=== PATIENT | female | born 1985 | race Caucasian/White ===

== ENCOUNTER 2017-04-15 09:14 | Day surgery (SDC) | payer MEDICAID, OTHER ==
[2017-04-15] MEDS: ALBUTEROL SULFATE 0.083% NEB 2.5 MG/3 ML AMPUL NEB ONE ×2 (08:15→09:30)
[2017-04-15] MEDS ORDERED: PROPOFOL INJ 200 MG/20 ML VIAL IV ONE ×2 (09:56→10:44)
[2017-04-15] MEDS ORDERED: MEPERIDINE HCL/PF INJ 25 MG/1 ML DISP.SYRIN IV PRN (10:41)
[2017-04-15] MEDS ORDERED: DIPHENHYDRAMINE HCL 50 MG/ML VIAL IV PRN (10:41)
[2017-04-15] MEDS ORDERED: MORPHINE SULFATE 10 MG/ML INJ IV PRN (10:41)
[2017-04-15] MEDS ORDERED: FENTANYL CITRATE INJ/PF 100 MCG/2 ML AMPUL IV PRN ×3 (10:41)
[2017-04-15] MEDS ORDERED: PROMETHAZINE HCL INJ 25 MG/1 ML VIAL IV PRN ×2 (10:41)
--- NOTE | 2017-04-15 10:59 | Operative Report ---
Operative Report DATE OF SURGERY: 04/15/17 Operative Report: The risks benefits and alternatives of the procedure explained to the patient in detail and informed consent is obtained.A GIF Olympus video scope was inserted into the patient's mouth and hypopharynx, the esophagus is identified intubated and insufflated, the scope was then advanced through the esophagus stomach and duodenum, retroflexion maneuver is done ,the esophagus stomach and first and second portions of the duodenum examined PREOPERATIVE DIAGNOSIS: Epigastric pain rule out peptic ulcer disease POSTOPERATIVE DIAGNOSIS: Gastritis status post biopsy rule out Helicobacter pylori OPERATION: EGD with biopsy SURGEON: INDERJIT BRAGA ANESTHESIA: LMAC TISSUE REMOVED OR ALTERED: Gastric mucosal specimen obtained to rule out Helicobacter pylori COMPLICATIONS: None. ESTIMATED BLOOD LOSS: None. INTRAOPERATIVE FINDINGS: No esophageal ulcers noted. Gastritis. First and second portions of the duodenum normal. PROCEDURE: Patient tolerated the procedure well. No immediate postprocedure complications are noted. Patient discharged in good condition. Discharge date 04/15/2017. Discharge diet: Regular. Discharge activity: Regular. 2-3 week follow-up to discuss findings. Patient is instructed to call the office or proceed to the emergency room should there be any further problems or questions. We will wait on biopsies.
[2017-04-15 12:14] VITALS: BP 118/73
== END 2017-04-15 12:18 | disposition home or self-care (01) ==
LOC: OROUT 09:14
PROVIDERS: ATTEND Internal Medicine Gastroenterology
PROC: 0DB68ZX Excision of Stomach, Via Natural or Artificial Opening Endoscopic, Diagnostic (ICD-10-PCS; principal; 2017-04-15 09:45)
DX: K29.50 Unspecified chronic gastritis without bleeding (principal); F17.210 Nicotine dependence, cigarettes, uncomplicated; K21.9 Gastro-esophageal reflux disease without esophagitis; Z79.899 Other long term (current) drug therapy; Z88.2 Allergy status to sulfonamides; Z88.1 Allergy status to other antibiotic agents
CPT/HCPCS: 43239; 81025; 88342 ×2; 88305 ×2; J2704; 740

== ENCOUNTER → 2018-07-03 | Outpatient (CLI) | payer MEDICAID ==
--- NOTE | 2018-07-03 11:17 | RADIOLOGY REPORT (SQ) ---
EXAM DESCRIPTION: ANKLE RIGHT COMPLETE COMPLETED DATE/TIME: 07/03/2018 11:09 am REASON FOR STUDY: PAIN IN RIGHT ANKLE AND JOINTS OF RIGHT FOOT M25.571 PAIN IN RIGHT ANKLE AND JOIN TS OF RIGHT FOOT COMPARISON: None. NUMBER OF VIEWS: Three views. TECHNIQUE: AP, lateral, and oblique radiographic images acquired of the right ankle. LIMITATIONS: None. FINDINGS: MINERALIZATION: Normal. BONES: No acute fracture or dislocation. Orthopedic tracks in the distal tibia from prior hardware r emoval. No worrisome bone lesions. JOINTS: No effusions. SOFT TISSUES: No soft tissue swelling. No foreign body. OTHER: No other significant finding. IMPRESSION: 1. NEGATIVE STUDY OF THE RIGHT ANKLE. TECHNICAL DOCUMENTATION: JOB ID: [id number] [employer]- All Rights Reserved Reading location - IP/workstation name: [email or web address]
== END ==
LOC: OD 10:55
PROVIDERS: ATTEND Family Medicine
DX: M25.571 Pain in right ankle and joints of right foot (principal)

== ENCOUNTER 2018-08-30 09:16 | Day surgery (SDC) | payer MEDICAID ==
[~2018-08-30 09:16] MED LIST: EPINEPHRINE INJ 1 MG/10 ML DISP.SYRIN ONE; FLUMAZENIL INJ 0.5 MG/5 ML VIAL ONE; GLUCAGON,HUMAN RECOMB 1 MG INJ ONE; NALOXONE HCL INJ/PF 0.4 MG/1 ML SDV ONE; ONDANSETRON HCL INJ/PF 4 MG/2 ML SDV ONE
[2018-08-30] MEDS: MIDAZOLAM 2 MG/2 ML INJ ONE ×3 (09:45→09:53)
[2018-08-30] MEDS: FENTANYL CITRATE INJ/PF 100 MCG/2 ML AMPUL ONE ×2 (09:47→09:51)
--- NOTE | 2018-08-30 10:12 | Operative Report ---
Operative Report DATE OF SURGERY: 08/30/18 Operative Report: The risks benefits and alternatives of the procedure explained to the patient in detail and informed consent is obtained.A GIF Olympus video scope was inserted into the patient's mouth and hypopharynx, the esophagus is identified intubated and insufflated ,the scope was then advanced through the esophagus stomach and duodenum, retroflexion maneuver is done the esophagus stomach and first and second portions of the duodenum examined PREOPERATIVE DIAGNOSIS: Dysphagia POSTOPERATIVE DIAGNOSIS: Schatzki's ring status post breakage. Hiatal hernia. Gastritis status post biopsy OPERATION: EGD with biopsy SURGEON: INDERJIT BRAGA ANESTHESIA: Moderate Sedation - 6 mg of Versed, 150 mcg of fentanyl. Conscious sedation monitoring time 30 minutes. TISSUE REMOVED OR ALTERED: As noted above. COMPLICATIONS: None. ESTIMATED BLOOD LOSS: None. INTRAOPERATIVE FINDINGS: As noted above. PROCEDURE: Patient tolerated the procedure well. No immediate postprocedure complications are noted. Patient discharged in good condition. Discharge date 08/30/2018. Discharge diet: Regular. Discharge activity: Regular. 2-3-week follow-up to discuss findings. Patient is instructed to call the office or proceed to the emergency room should there be any further proximal questions. Wait on the pathology.
[2018-08-30 11:29] VITALS: BP 116/73
== END 2018-08-30 11:20 | disposition home or self-care (01) ==
LOC: END 09:16
PROVIDERS: ATTEND Internal Medicine Gastroenterology
DX: K22.2 Esophageal obstruction (principal); K44.9 Diaphragmatic hernia without obstruction or gangrene; K29.50 Unspecified chronic gastritis without bleeding; K21.0 Gastro-esophageal reflux disease with esophagitis; F17.210 Nicotine dependence, cigarettes, uncomplicated; Z88.1 Allergy status to other antibiotic agents; Z88.2 Allergy status to sulfonamides
CPT/HCPCS: 43239; 88305 ×2; J2250; J3010; J0171; J1610; J2310; J2405; J3490

== ENCOUNTER 2018-11-14 08:23 | Emergency (ER) | payer MEDICAID ==
--- NOTE | 2018-11-14 09:28 | ER Document Report ---
ED Skin Rash/Insect Bite/Abscs - General Chief Complaint: Insect Bite Stated Complaint: POSSIBLE SPIDER BITE Time Seen by Provider: 11/14/18 09:04 Mode of Arrival: Ambulatory Information source: Patient Notes: 33-year-old female presented to ED for a red inflamed "insect bite "to her neck that has been progressively getting worse for the last 5 days. She states she is cleaned it with peroxide and placed a Band-Aid over it for the last 5 days. She states that she had a red bump on her neck and she squeezed it 3-4 days ago. She states she got some fluid out of it and that she has been squeezing it and cleaning it daily. She states that it has become more sore so she came to the emergency room because she thought it might be a spider bite and needed treatment. TRAVEL OUTSIDE OF THE [place] IN LAST 30 DAYS: No - HPI Patient complains to provider of: Tender/swollen area Onset: Other - 5 days Onset/Duration: Gradual Quality of pain: Achy, Pressure Severity: Severe Pain Level: 5 Skin Character: Other - Small scabbed over area to the neck that looks like a insect bite that is been squeezed and manipulated multiple times. Quality of rash: Painful Identify cause: Yes Exacerbated by: Denies Relieved by: Denies Similar symptoms previously: Yes Recently seen / treated by doctor: No - Related Data Allergies/Adverse Reactions: erythromycin base [Erythromycin Base] Allergy (Verified 11/14/18 08:25) SWELLING Sulfa (Sulfonamide Antibiotics) Allergy (Verified 11/14/18 08:25) SWELLING Past Medical History - General Information source: Patient - Social History Smoking Status: Unknown if Ever Smoked Frequency of alcohol use: None Drug Abuse: None Lives with: Family Family History: Reviewed & Not Pertinent Patient has suicidal ideation: No Patient has homicidal ideation: No - Past Medical History Cardiac Medical History: Reports: None Pulmonary Medical History: Reports: Hx Bronchitis - A CHILD EENT Medical History: Reports: None Neurological Medical History: Reports: None Endocrine Medical History: Reports: None Renal/ Medical History: Reports: None Malignancy Medical History: Reports: None GI Medical History: Reports: None Musculoskeletal Medical History: Reports Hx Arthritis Skin Medical History: Reports Hx Cellulitis - She states she has had a brown recluse bite that had to have surgery Psychiatric Medical History: Reports: None Traumatic Medical History: Reports: None Infectious Medical History: Reports: None Past Surgical History: Reports: Other - I&D and open area for brown recluse bite in the past - Immunizations Hx Diphtheria, Pertussis, Tetanus Vaccination: Yes Review of Systems - Review of Systems Constitutional: No symptoms reported EENT: No symptoms reported Cardiovascular: No symptoms reported Respiratory: No symptoms reported Gastrointestinal: No symptoms reported Genitourinary: No symptoms reported Female Genitourinary: No symptoms reported Musculoskeletal: No symptoms reported Skin: Lesions - Lesion to the neck that started as a red bump and she has been squeezing it and cleaning it with peroxide for the last 5 days Hematologic/Lymphatic: No symptoms reported Neurological/Psychological: No symptoms reported Physical Exam - Vital signs Vitals: Temp Pulse Resp BP Pulse Ox 98.5 F 103 H 16 116/71 97 11/14/18 08:29 11/14/18 08:29 11/14/18 08:29 11/14/18 08:29 11/14/18 08:29 Interpretation: Normal - General General appearance: Appears well, Alert - HEENT Head: Normocephalic, Atraumatic Eyes: Normal Pupils: PERRL Ears: Normal External canal: Normal Tympanic membrane: Normal Sinus: Normal Nasal: Normal Mouth/Lips: Normal Mucous membranes: Normal Pharynx: Normal Neck: Other - Lesion to the front of the neck the patient has been squeezing and cleaning with peroxide - Respiratory Respiratory status: No respiratory distress Chest status: Nontender Breath sounds: Normal Chest palpation: Normal - Cardiovascular Rhythm: Regular Heart sounds: Normal auscultation Murmur: No - Abdominal Inspection: Normal Distension: No distension Bowel sounds: Normal Tenderness: Nontender Organomegaly: No organomegaly - Back Back: Normal, Nontender - Extremities General upper extremity: Normal inspection, Nontender, Normal color, Normal ROM, Normal temperature General lower extremity: Normal inspection, Nontender, Normal color, Normal ROM, Normal temperature, Normal weight bearing. No: Kacey's sign - Neurological Neuro grossly intact: Yes Cognition: Normal Orientation: AAOx4 Point Clear Coma Scale Eye Opening: Spontaneous Alex Coma Scale Verbal: Oriented Alex Coma Scale Motor: Obeys Commands Point Clear Coma Scale Total: 15 Speech: Normal Motor strength normal: LUE, RUE, LLE, RLE Sensory: Normal - Psychological Associated symptoms: Normal affect, Normal mood - Skin Skin Temperature: Warm Skin Moisture: Dry Skin Color: Normal Course - Re-evaluation Re-evalutation: 11/14/18 23:16 Patient was given instructions for very superficial minimal abscess to the front of the neck. She was given instructions to clean with soap and water apply bacitracin and Band-Aid 2-3 times a day. She was started on Keflex and instructed not to squeeze or do anything except for "clean the area with warm soapy water and apply bacitracin. Patient was given bacitracin and small Band- Aids to apply to the area. The area is less than 1 cm across. - Vital Signs Vital signs: Temp Pulse Resp BP Pulse Ox 98 F 81 16 108/73 98 11/14/18 09:31 11/14/18 09:31 11/14/18 09:31 11/14/18 09:31 11/14/18 09:31 Discharge - Discharge Clinical Impression: Abscess of skin of neck Condition: Stable Disposition: HOME, SELF-CARE Additional Instructions: ABSCESS: You have an abscess (boil). This a pus-forming infection, usually due to staph. Some boils may be left to drain on their own. From the time the tender lump first appears, it may be three or four days before the abscess is ready to vanessa. Local heat and rest help at this stage of treatment. An antibiotic may prevent spread of the infection. Once the abscess is opened, packing may be placed into it. This is done so pus is not sealed inside by premature closure of the cavity. The packing will be removed at your follow-up visit or you may be advised to remove it yourself at home. Sometimes this packing must be replaced a few times during healing. The wound will heal with surprisingly little scar. Depending on the size and location of an abscess, healing can take one to four weeks. You may shower and wash the area around the incision site two or three times a day. Antibiotics may be prescribed, but are usually not necessary after an abscess has been drained. If you develop fever, chills, worsening pain, or increasing swelling in the area, call the doctor or return immediately. CEPHALEXIN: The antibiotic you've been prescribed is a member of the cephalosporin class. This type of antibiotic covers a wide variety of infections, including those of the skin, lungs, and urinary tract. It's useful for staph infections. This antibiotic is slightly similar to the penicillin family. In rare cases, a person who is allergic to penicillin will also be allergic to this medication. If you have had a severe allergic reaction to penicillin, and have not taken this antibiotic since that time, notify your doctor. Antibiotics which cover many germs ("broad spectrum" antibiotics) are more likely to cause diarrhea or "yeast" infections. Women prone to vaginal yeast problems may suffer an attack after taking this antibiotic. In infants, oral thrush (white spots "stuck" on the cheek) or yeast diaper rash may result. See your doctor if these problems occur. Call at once if you develop itching, hives, shortness of breath, or lightheadedness. SOAP CLEANSING: Gently wash the wound daily using a mild soap (like Ivory, Phisoderm, Neutrogena). Use warm water, rubbing gently until all debris, ooze, and crusting have been washed from the wound. Allow to dry briefly (about 10 minutes) after cleaning. Repeat this cleansing at least three times a day for the first two days and then once or twice a day. ANTIBIOTIC OINTMENT PROTECTION: Your wounds are such that dressing them is not practical or optional. After cleansing, you should apply a thin coating of antibiotic ointment (Bacitracin, not Neosporin) to the wounds at least three times daily. This lessens infection risk, and may decrease the amount of scarring. Use a q-tip or dull butter knife, not your finger, to apply this ointment. Any debris or ooze which builds up in the ointment should be gently rubbed off with a sterile gauze pad. Harder crusting may need to be gently scrubbed off with a clean wash cloth with soap and warm water, perhaps applying a warm, wet wash cloth to the wound for ten minutes first. Development of redness, severe itching, or blistering may mean allergy to the ointment. See the doctor. FOLLOW-UP CARE: If you have been referred to a physician for follow-up care, call the physicians office for an appointment as you were instructed or within the next two days. If you experience worsening or a significant change in your symptoms, notify the physician immediately or return to the Emergency Department at any time for re-evaluation. Prescriptions: Cephalexin Monohydrate [Keflex 500 mg Capsule] 500 mg PO Q6H 5 Days capsule Forms: Return to Work Referrals: CARINE ENAMORADO DO [Primary Care Provider] - Follow up as needed
[2018-11-14 09:32] VITALS: BP 108/73
== END 2018-11-14 09:31 | disposition home or self-care (01) ==
LOC: ER 08:23
DX: L02.11 Cutaneous abscess of neck (principal)
CPT/HCPCS: 99281

== ENCOUNTER 2019-01-10 08:40 | Emergency (ER) | payer MEDICAID ==
[2019-01-10] MEDS ORDERED: NORMAL SALINE 1000 ML 1,000 ML IV ONE (09:38)
--- NOTE | 2019-01-10 09:39 | ER Document Report ---
ED Medical Screen (RME) - General Chief Complaint: Abdominal Pain Stated Complaint: FEVER Time Seen by Provider: 01/10/19 09:32 Primary Care Provider: CARINE ENAMORADO DO [Primary Care Provider] - Follow up as needed Notes: 33-year-old female to the emergency department chief complaint of shortness of breath, nausea, vomiting. Cannot keep anything down. Intermittent fever and chills. Symptoms have been present for 2 days. Some mild pain in the left lower quadrant but thinks that she is about to start her period. I have greeted and performed a rapid initial assessment of this patient. A comprehensive ED assessment and evaluation of the patient, analysis of test results and completion of the medical decision making process will be conducted by additional ED providers. TRAVEL OUTSIDE OF THE [place] IN LAST 30 DAYS: No - Related Data Allergies/Adverse Reactions: erythromycin base [Erythromycin Base] Allergy (Verified 01/10/19 08:43) SWELLING Sulfa (Sulfonamide Antibiotics) Allergy (Verified 01/10/19 08:43) SWELLING Past Medical History - Past Medical History Cardiac Medical History: Denies: Hx Coronary Artery Disease, Hx Heart Attack, Hx Hypertension Pulmonary Medical History: Reports: Hx Bronchitis - A CHILD Denies: Hx Asthma, Hx COPD, Hx Pneumonia Neurological Medical History: Denies: Hx Cerebrovascular Accident, Hx Seizures Renal/ Medical History: Denies: Hx Peritoneal Dialysis GI Medical History: Reports: Hx Gastroesophageal Reflux Disease Musculoskeltal Medical History: Reports Hx Arthritis Skin Medical History: Reports Hx Cellulitis - She states she has had a brown recluse bite that had to have surgery Past Surgical History: Reports: Hx Section, Hx Orthopedic Surgery, Hx Tonsillectomy, Other - I&D and open area for brown recluse bite in the past. Denies: Hx Hysterectomy - Immunizations Hx Diphtheria, Pertussis, Tetanus Vaccination: Yes Review of Systems - Review of Systems Notes: Review of systems positive for the following: Shortness of breath, abdominal pain, nausea, vomiting, fever, chills Physical Exam - Vital signs Vitals: Temp Pulse Resp BP Pulse Ox 98.5 F 111 H 16 119/85 98 01/10/19 08:46 01/10/19 08:46 01/10/19 08:46 01/10/19 08:46 01/10/19 08:46 - Notes Notes: Physical exam consistent of following: Tachycardia, tachypnea, lungs are clear, abdomen is soft, nondistended, positive bowel sounds, mild distress from discomfort. Course - Vital Signs Vital signs: Temp Pulse Resp BP Pulse Ox 98.5 F 111 H 16 119/85 98 01/10/19 08:46 01/10/19 08:46 01/10/19 08:46 01/10/19 08:46 01/10/19 08:46 Doctor's Discharge - Discharge Referrals: CARINE ENAMORADO DO [Primary Care Provider] - Follow up as needed
--- NOTE | 2019-01-10 10:09 | RADIOLOGY REPORT (SQ) ---
EXAM DESCRIPTION: CHEST 2 VIEWS COMPLETED DATE/TIME: 01/10/2019 10:01 am REASON FOR STUDY: sob COMPARISON: None. EXAM PARAMETERS: NUMBER OF VIEWS: two views TECHNIQUE: Digital Frontal and Lateral radiographic views of the chest acquired. RADIATION DOSE: NA LIMITATIONS: none FINDINGS: LUNGS AND PLEURA: No opacities, masses or pneumothorax. No pleural effusion. MEDIASTINUM AND HILAR STRUCTURES: No masses or contour abnormalities. HEART AND VASCULAR STRUCTURES: Heart normal size. No evidence for failure. BONES: No acute findings. HARDWARE: None in the chest. OTHER: No other significant finding. IMPRESSION: 1. NO ACUTE RADIOGRAPHIC FINDING IN THE CHEST. TECHNICAL DOCUMENTATION: JOB ID: [id number] [employer]- All Rights Reserved Reading location - IP/workstation name: [email or web address]
[2019-01-10 10:11] LABS: HEMATOCRIT 45.4 % (36.0-47.0); HEMOGLOBIN 15.6 g/dL (12.0-15.5); MEAN CORPUSCULAR HEMOGLOBIN 30.4 pg (27.0-33.4); MEAN CORPUSCULAR HGB CONC 34.4 g/dL (32.0-36.0); MEAN CORPUSCULAR VOLUME 88 fl (80-97); PLATELET COUNT 326 10^3/uL (150-450); RED BLOOD COUNT 5.15 10^6/uL (3.72-5.28); RED CELL DISTRIBUTION WIDTH 13.8 % (11.5-14.0); WHITE BLOOD COUNT 8.8 10^3/uL (4.0-10.5)
[2019-01-10 10:25] LABS: ALANINE AMINOTRANSFERASE 44 U/L (9-52); ALBUMIN 5.2 g/dL (3.5-5.0); ALKALINE PHOSPHATASE 56 U/L (38-126); ANION GAP 18 (5-19); ASPARTATE AMINO TRANSFERASE 38 U/L (14-36); BILIRUBIN,DIRECT 0.3 mg/dL (0.0-0.4); BILIRUBIN,TOTAL 0.6 mg/dL (0.2-1.3); BLOOD UREA NITROGEN 25 mg/dL (7-20); CARBON DIOXIDE 24 mmol/L (22-30); CHLORIDE 104 mmol/L (98-107); GLUCOSE 177 mg/dL (75-110); LIPASE 29.5 U/L (23-300); POTASSIUM 4.2 mmol/L (3.6-5.0); SODIUM 146.4 mmol/L (137-145); TOTAL PROTEIN 8.3 g/dL (6.3-8.2)
[2019-01-10 10:28] LABS: A TYPE INFLUENZA AG NEGATIVE (NEGATIVE); B INFLUENZA AG NEGATIVE (NEGATIVE)
[2019-01-10 10:36] LABS: ABSOLUTE LYMPHOCYTES# (MANUAL) 0.7 10^3/uL (0.5-4.7); ABSOLUTE MONOCYTES # (MANUAL) 0.2 10^3/uL (0.1-1.4); ABSOLUTE NEUTROPHILS# (MANUAL) 7.9 10^3/uL (1.7-8.2); BASOPHILS % (MANUAL) 0 % (0-2); EOSINOPHILS % (MANUAL) 0 % (0-6); LYMPHOCYTES % (MANUAL) 7 % (13-45); MONOCYTES % (MANUAL) 2 % (3-13); SEGMENTED NEUTROPHILS % (MAN) 90 % (42-78); TOTAL CELLS COUNTED 100
[2019-01-10 10:37] LABS: PLATELET COMMENT ADEQUATE; RBC MORPHOLOGY COMMENT NORMO-CYTIC/CHROMIC
[2019-01-10 10:59] LABS: APPEARANCE,URINE SLIGHTLY-CLOUDY; BILIRUBIN,URINE NEGATIVE (NEGATIVE); COLOR,URINE YELLOW; GLUCOSE, URINE NEGATIVE (NEGATIVE); KETONES,URINE NEGATIVE (NEGATIVE); LEUKOCYTE ESTERASE,URINE NEGATIVE (NEGATIVE); NITRITE,URINE NEGATIVE (NEGATIVE); PROTEIN,URINE 100 mg/dL (NEGATIVE); URINE SPECIFIC GRAVITY 1.028; UROBILINOGEN,URINE NEGATIVE mg/dL (<2.0)
[2019-01-10] MEDS ORDERED: ONDANSETRON ODT 4 MG TAB (6 TAB/ER DISP) PO PRN (12:01)
--- NOTE | 2019-01-10 12:01 | ER Document Report ---
HPI - HPI Time Seen by Provider: 01/10/19 09:32 Pain Level: 1 Context: Patient is a 33-year-old female who presents to the emergency department with a chief complaint of vomiting, fever, chills, and body aches. Her symptoms started yesterday. She states that she has an aching pain all throughout her body. She denies any diarrhea. She has had some sick contacts, who have had the same symptoms. She denies any dysuria. She took some Motrin yesterday, but was unable to keep it down. She has past medical history of GERD with multiple ablations. - ROS Notes: REVIEW OF SYSTEMS: CONSTITUTIONAL : See HPI EENT: Denies eye, ear, throat, or mouth pain, discharge, or symptoms. Denies nasal or sinus congestion. CARDIOVASCULAR: Denies chest pain. RESPIRATORY: Denies shortness of breath, cough, congestion, difficulty br eathing, or wheezing. GASTROINTESTINAL: See HPI GENITOURINARY: Denies difficulty urinating, burning, blood in urine, urgency or frequency. MUSCULOSKELETAL: Denies neck and back pain. Denies joint pain or swelling. SKIN: Denies rash, itchiness, or lesions HEMATOLOGIC : Denies easy bruising or bleeding. LYMPHATIC: Denies swollen, painful, enlarged glands. NEUROLOGICAL: Denies no numbness or tingling denies weakness. Denies headache. Denies altered mental status. Denies alteration in speech. PSYCHIATRIC: Denies stress, anxiety, alteration in sleep patterns, or depression. All other systems reviewed and negative. - REPRODUCTIVE Reproductive: DENIES: : Past Medical History - Social History Smoking Status: Former Smoker Family History: Reviewed & Not Pertinent Patient has suicidal ideation: No Patient has homicidal ideation: No - Past Medical History Cardiac Medical History: Denies: Hx Coronary Artery Disease, Hx Heart Attack, Hx Hypertension Pulmonary Medical History: Reports: Hx Bronchitis - A CHILD Denies: Hx Asthma, Hx COPD, Hx Pneumonia Neurological Medical History: Denies: Hx Cerebrovascular Accident, Hx Seizures Renal/ Medical History: Denies: Hx Peritoneal Dialysis GI Medical History: Reports: Hx Gastroesophageal Reflux Disease Musculoskeletal Medical History: Reports Hx Arthritis Skin Medical History: Reports Hx Cellulitis - She states she has had a brown recluse bite that had to have surgery Past Surgical History: Reports: Hx Section, Hx Orthopedic Surgery, Hx Tonsillectomy, Other - I&D and open area for brown recluse bite in the past. Denies: Hx Hysterectomy - Immunizations Hx Diphtheria, Pertussis, Tetanus Vaccination: Yes Vertical Provider Document - CONSTITUTIONAL Notes: PHYSICAL EXAMINATION: GENERAL: Appears well, healthy, well-nourished, no acute distress. HEAD: Normocephalic, atraumatic. EYES: PERRL, conjunctiva normal, all extraocular movements intact, sclera nonicteric ENT: Moist mucous membranes. NECK: Supple, no noticeable swelling, redness, rash. Normal range of motion. LUNGS: Equal breath sounds bilaterally and clear to auscultation. No wheezes rales or rhonchi. CARDIOVASCULAR: S1-S2, regular rate, regular rhythm. Radial pulses 2+, normal. ABDOMEN: Normoactive bowel sounds. Soft, mildly tender abdomen, no guarding, no rebound tenderness, and no masses palpated. EXTREMITIES: Normal strength and range of motion, no pitting or edema. No cyanosis. NEUROLOGICAL: Moves all extremities upon command. Strength 5/5 in all extremities. PSYCH: Normal mood, normal affect. SKIN: Warm, dry. No rash, lesions, ulcerations noted. Normal skin turgor. - INFECTION CONTROL TRAVEL OUTSIDE OF THE [place] IN LAST 30 DAYS: No Course - Re-evaluation Re-evalutation: 01/10/19 12:02 Patient's labs are unremarkable at this time. Her chest x-ray is negative for any infiltrates or any acute disease process. She states that she does feel better after receiving Zofran and fluids. I suspect the patient was having symptoms after having close contacts with her son who was sick. Return prec autions were given to the patient. I do not suspect patient has pneumonia, bowel obstruction, acute appendicitis, or any other life-threatening etiology at this time. Verbal discharge instructions were given to the patient. They verbalized understanding. They are stable for discharge. - Vital Signs Vital signs: Temp Pulse Resp BP Pulse Ox 98.5 F 111 H 16 119/85 98 01/10/19 08:46 01/10/19 08:46 01/10/19 08:46 01/10/19 08:46 01/10/19 08:46 - Laboratory Result Diagrams: 01/10/19 09:55 01/10/19 09:55 Laboratory results interpreted by me: 01/10/19 01/10/1901/10/19 09:55 09:55 10:45 Hgb 15.6 H Seg Neuts % (Manual) 90 H Lymphocytes % (Manual) 7 L Monocytes % (Manual) 2 L Sodium 146.4 H BUN 25 H Glucose 177 H AST 38 H Total Protein 8.3 H Albumin 5.2 H Urine Protein 100 H Urine Ascorbic Acid 40 H Discharge - Discharge Clinical Impression: Fever Qualifiers: Fever type: unspecified Qualified Code(s): R50.9 - Fever, unspecified Vomiting Qualifiers: Vomiting type: unspecified Vomiting Intractability: non-intractable Nausea presence: with nausea Qualified Code(s): R11.2 - Nausea with vomiting, unspecified Condition: Stable Instructions: Vomiting ([facility]), Abdominal Pain ([facility]), Antinausea Medication ([facility]), Viral Syndrome ([facility]) Additional Instructions: You were seen today in the emergency department for fever, vomiting, chills, and body aches. Your chest x-ray is normal. Your labs are normal. You have been given Zofran, medication for nausea. You may take 1 tablet every 4-6 hours as needed for nausea or vomiting. Make sure you stay well hydrated. If you are unable to keep food down or water while on Zofran, or have any symptoms that are worrisome to you, please return to the emergency department. Referrals: CARINE ENAMORADO DO [Primary Care Provider] - Follow up as needed
[2019-01-10] MEDS ORDERED: ACETAMINOPHEN 325 MG TABLET PO ONE (12:12)
[2019-01-10 12:21] VITALS: BP 105/61
== END 2019-01-10 12:36 | disposition home or self-care (01) ==
LOC: ER 08:40
DX: R11.2 Nausea with vomiting, unspecified (principal); R50.9 Fever, unspecified; R10.32 Left lower quadrant pain; R10.819 Abdominal tenderness, unspecified site; Z87.19 Personal history of other diseases of the digestive system
CPT/HCPCS: 99284; 96360; 36415; 83690; 85025; 81025; 80053; 81001; 87804; 71046; J3490; J7030

== ENCOUNTER → 2020-03-11 | Outpatient (CLI) | payer OTHER, MEDICAID ==
--- NOTE | 2020-03-11 12:48 | RADIOLOGY REPORT (SQ) ---
EXAM DESCRIPTION: CHEST PA/LATERAL IMAGES COMPLETED DATE/TIME: 03/11/2020 11:37 am REASON FOR STUDY: COUGH COMPARISON: PA and lateral views of the chest from 01/10/2019. EXAM PARAMETERS: NUMBER OF VIEWS: two views TECHNIQUE: PA and lateral views of the chest were obtained RADIATION DOSE: NA LIMITATIONS: none FINDINGS: LUNGS AND PLEURA: No consolidation, pleural effusion or pneumothorax. MEDIASTINUM AND HILAR STRUCTURES: No mediastinal or hilar contour abnormality. HEART AND VASCULAR STRUCTURES: The cardiac silhouette and pulmonary vasculature are within normal dumont its. BONES: No acute findings. HARDWARE: None in the chest. OTHER: No other finding. IMPRESSION: No acute cardiopulmonary process. TECHNICAL DOCUMENTATION: JOB ID: [id number] [employer]- All Rights Reserved Reading location - IP/workstation name: [email or web address]
== END ==
LOC: OD 11:15
PROVIDERS: ATTEND Nurse Practitioner Family
DX: R05 Cough (principal)
CPT/HCPCS: 71046

== ENCOUNTER 2020-04-11 07:10 | Day surgery (SDC) | payer BC, MEDICAID ==
[~2020-04-11 07:10] MED LIST changes: -EPINEPHRINE INJ 1 MG/10 ML DISP.SYRIN ONE; -FLUMAZENIL INJ 0.5 MG/5 ML VIAL ONE; -GLUCAGON,HUMAN RECOMB 1 MG INJ ONE; +LIDOCAINE 2% INJ-PF (20 MG/ML) 10 ML AMPUL ONE; -NALOXONE HCL INJ/PF 0.4 MG/1 ML SDV ONE; -ONDANSETRON HCL INJ/PF 4 MG/2 ML SDV ONE; +PROPOFOL INJ 200 MG/20 ML VIAL IV ONE
--- NOTE | 2020-04-11 09:45 | Operative Report ---
Operative Report DATE OF SURGERY: 04/11/20 Operative Report: The risks benefits and alternatives of the procedure explained to the patient in detail and informed consent is obtained.A GIF Olympus video scope was inserted into the patient's mouth and hypopharynx, the esophagus is identified intubated and insufflated ,the scope was then advanced through the esophagus stomach and duodenum ,retroflexion maneuver is done, the esophagus stomach and first and second portions of the duodenum examined. PREOPERATIVE DIAGNOSIS: Chronic cough, gastroesophageal reflux disease POSTOPERATIVE DIAGNOSIS: Gastritis, status post biopsy rule out Helicobacter pylori. Esophagitis OPERATION: EGD with biopsy SURGEON: INDERJIT BRAGA ANESTHESIA: LMAC TISSUE REMOVED OR ALTERED: As noted above. COMPLICATIONS: None. ESTIMATED BLOOD LOSS: None. INTRAOPERATIVE FINDINGS: As noted above. PROCEDURE: Patient tolerated the procedure well. No immediate postprocedure complications are noted. Patient is discharged in good condition. Discharge date 04/11/2020. Discharge diet: Regular. Discharge activity: Regular. 2 to 3-week follow-up to discuss findings. Patient is instructed to call the office or proceed to the emergency room should there be any further problems or questions. Wait on the pathology.
[2020-04-11 11:02] VITALS: BP 121/70
== END 2020-04-11 09:45 | disposition home or self-care (01) ==
LOC: OROUT 07:10
PROVIDERS: ATTEND Internal Medicine Gastroenterology
DX: K21.0 Gastro-esophageal reflux disease with esophagitis (principal); K29.50 Unspecified chronic gastritis without bleeding; J45.909 Unspecified asthma, uncomplicated; Z79.899 Other long term (current) drug therapy; Z03.818 Encounter for observation for suspected exposure to other biological agents ruled out
CPT/HCPCS: 43239; 87635; 88305 ×2; 00731; J2704; J3490; 731

== ENCOUNTER 2020-04-19 11:16 | Emergency (ER) | payer OTHER, MEDICAID ==
--- NOTE | 2020-04-19 11:46 | ER Document Report ---
ED Medical Screen (RME) - General Chief Complaint: Neck Swelling Stated Complaint: NECK PAIN Time Seen by Provider: 04/19/20 11:40 Primary Care Provider: ZAC KIRBY FNP [Primary Care Provider] - Follow up as needed Mode of Arrival: Ambulatory Information source: Patient Notes: 35-year-old female presented to ED with a large inflamed red knot to the left side of her neck. She states that last Tuesday she had an upper endoscopy and started with a knot on the side of her neck on Tuesday. She went to Dr. Farfan who did the endoscopy on Tuesday and she states he did not look at the knot when she asked him to. She states Tuesday she was in bed all day because she was so uncomfortable and unsteady on her feet with a temperature of 99.9. She states she called her primary care doctor and was scheduled an appointment for Tuesday but the Pain got so bad that she went to urgent care on Tuesday and they gave her some clindamycin. She states that pain and the swelling has not gotten better but is actually gotten worse. She came to the emergency room now because of the increase in size of the knot on her left side of her neck. Last menstrual period was April 07. She states she smokes 3 cigarettes a day drinks once or twice a month and does use marijuana. Patient is alert oriented respirations regular nonlabored speaking in full sentences. She is not having trouble swallowing at this time. I have greeted and performed a rapid initial assessment of this patient. A comprehensive ED assessment and evaluation of the patient, analysis of test results and completion of medical decision making process will be conducted by an additional ED providers. TRAVEL OUTSIDE OF THE [place] IN LAST 30 DAYS: No - Related Data Allergies/Adverse Reactions: erythromycin base [Erythromycin Base] Allergy (Verified 04/11/20 07:18) SWELLING Sulfa (Sulfonamide Antibiotics) Allergy (Verified 04/11/20 07:18) SWELLING Past Medical History - Social History Chew tobacco use (# tins/day): No Frequency of alcohol use: Social Drug Abuse: Heroin - Past Medical History Cardiac Medical History: Denies: Hx Coronary Artery Disease, Hx Heart Attack, Hx Hypertension Pulmonary Medical History: Reports: Hx Bronchitis - A CHILD Denies: Hx Asthma, Hx COPD, Hx Pneumonia Neurological Medical History: Denies: Hx Cerebrovascular Accident, Hx Seizures Renal/ Medical History: Denies: Hx Peritoneal Dialysis GI Medical History: Reports: Hx Gastroesophageal Reflux Disease Musculoskeltal Medical History: Reports Hx Arthritis Skin Medical History: Reports Hx Cellulitis - She states she has had a brown recluse bite that had to have surgery Past Surgical History: Reports: Hx Section, Hx Orthopedic Surgery, Hx Tonsillectomy, Other - I&D and open area for brown recluse bite in the past. Denies: Hx Hysterectomy - Immunizations Hx Diphtheria, Pertussis, Tetanus Vaccination: Yes Physical Exam - Vital signs Vitals: Temp Pulse Resp BP Pulse Ox 98.9 F 107 H 20 131/90 H 99 04/19/20 11:20 04/19/20 11:20 04/19/20 11:20 04/19/20 11:20 04/19/20 11:20 Course - Vital Signs Vital signs: Temp Pulse Resp BP Pulse Ox 98.9 F 107 H 20 131/90 H 99 04/19/20 11:41 04/19/20 11:20 04/19/20 11:20 04/19/20 11:20 04/19/20 11:20 Doctor's Discharge - Discharge Referrals: ZAC KIRBY FNP [Primary Care Provider] - Follow up as needed
[2020-04-19 12:20] LABS: APPEARANCE,URINE SLIGHTLY-CLOUDY; BILIRUBIN,URINE NEGATIVE (NEGATIVE); COLOR,URINE YELLOW; GLUCOSE, URINE NEGATIVE (NEGATIVE); KETONES,URINE NEGATIVE (NEGATIVE); LEUKOCYTE ESTERASE,URINE NEGATIVE (NEGATIVE); NITRITE,URINE NEGATIVE (NEGATIVE); PROTEIN,URINE NEGATIVE (NEGATIVE); UROBILINOGEN,URINE NEGATIVE mg/dL (<2.0)
[2020-04-19] MEDS ORDERED: RINGERS SOLUTION,LACTATED 1,000 ML IV ONE (12:25)
--- NOTE | 2020-04-19 12:26 | ER Document Report ---
ED Neck/Back Problem - General Chief Complaint: Neck Swelling Stated Complaint: NECK PAIN Time Seen by Provider: 04/19/20 11:40 Primary Care Provider: ZAC KIRBY FNP [NO LOCAL MD] - Follow up as needed KATTY GRACE MD [ACTIVE STAFF] - Follow up in 3-5 days (Call for an outpatient follow-up appointment.) Mode of Arrival: Ambulatory Information source: Patient Notes: 35-year-old female past medical history significant for acid reflux presents to the emergency room with worsening pain and swelling to the left side of her neck for the past week. Patient states she did have an upper endoscopy approximately 10 days ago but did not develop symptoms until approximately 3 days later. Patient also states that she was [place] on [place] left [place]lobe [place] 2 [place] states it has been draining some pus she has been putting topical antibiotic ointment on it without full healing. States she is been running low-grade fevers of 99 for the past few days also states that she was post follow-up with her primary care physician instead she chose to go to the urgent care yesterday who diagnosed her with cellulitis and sent her home on clindamycin. She presents emergency room today complaining of worsening pain and swelling. States is a throbbing sensation in her left neck. Is able to eat and drink without difficulty. States is painful to touch and painful to rotate her head to the left. Denies any rash. Has been taking ibuprofen with minimal relief. Drove self to the emergency room. TRAVEL OUTSIDE OF THE [place] IN LAST 30 DAYS: No - Related Data Allergies/Adverse Reactions: erythromycin base [Erythromycin Base] Allergy (Verified 04/11/20 07:18) SWELLING Sulfa (Sulfonamide Antibiotics) Allergy (Verified 04/11/20 07:18) SWELLING Past Medical History - General Information source: Patient - Social History Smoking Status: Current Every Day Smoker Chew tobacco use (# tins/day): No Frequency of alcohol use: Social Drug Abuse: Heroin, Marijuana Family History: Reviewed & Not Pertinent Patient has homicidal ideation: No - Past Medical History Cardiac Medical History: Denies: Hx Coronary Artery Disease, Hx Heart Attack, Hx Hypertension Pulmonary Medical History: Reports: Hx Bronchitis - A CHILD Denies: Hx Asthma, Hx COPD, Hx Pneumonia Neurological Medical History: Denies: Hx Cerebrovascular Accident, Hx Seizures Renal/ Medical History: Denies: Hx Peritoneal Dialysis GI Medical History: Reports: Hx Gastroesophageal Reflux Disease Musculoskeletal Medical History: Reports Hx Arthritis Skin Medical History: Reports Hx Cellulitis - She states she has had a brown recluse bite that had to have surgery Past Surgical History: Reports: Hx Section, Hx Orthopedic Surgery, Hx Tonsillectomy, Other - I&D and open area for brown recluse bite in the past. Denies: Hx Hysterectomy - Immunizations Hx Diphtheria, Pertussis, Tetanus Vaccination: Yes Review of Systems - Review of Systems Constitutional: Fever EENT: Other - Left-sided neck swelling Cardiovascular: No symptoms reported Respiratory: No symptoms reported Musculoskeletal: No symptoms reported Skin: Lumps Neurological/Psychological: No symptoms reported -: Yes All other systems reviewed and negative Physical Exam - Vital signs Vitals: Temp Pulse Resp BP Pulse Ox 98.9 F 107 H 20 131/90 H 99 04/19/20 11:20 04/19/20 11:20 04/19/20 11:20 04/19/20 11:20 04/19/20 11:20 - General General appearance: Appears well, Alert In distress: Moderate - HEENT Head: Normocephalic, Atraumatic Extraocular movements intact: Yes Ears: Other - Left earlobe with erythema, there is a very small puncture wound noted that is warm and tender to palpation without active discharge or draining noted. External canal: Normal Tympanic membrane: Normal Sinus: Normal Nasal: Normal Pharynx: Normal. No: Erythema, Exudate, Peritonsillar abscess, Retropharyngeal abscess Neck: Posterior cervical chain, Lymphadenopathy - There is a 2 cm area of erythema to the left anterior cervical region it is warm and tender to palpation. No active discharge or draining noted.. No: Kernig's, Meningismus, Neck mass, Shotty nodes, Subcutaneous emphysema, Supple, Thyroid nodule, Thyromegally - Respiratory Respiratory status: No respiratory distress Chest status: Nontender Breath sounds: Normal Chest palpation: Normal - Cardiovascular Rhythm: Tachycardia Heart sounds: Normal auscultation Murmur: No Friction rub: No Aaron's crunch: No - Extremities General upper extremity: Normal inspection, Nontender, Normal color, Normal ROM, Normal temperature General lower extremity: Normal inspection, Nontender, Normal color, Normal ROM, Normal temperature, Normal weight bearing. No: Kacey's sign - Neurological Neuro grossly intact: Yes Cognition: Normal Orientation: AAOx4 Alex Coma Scale Eye Opening: Spontaneous [place] Coma Scale Verbal: Oriented Alex Coma Scale Motor: Obeys Commands Alex Coma Scale Total: 15 Speech: Normal Motor strength normal: LUE, RUE, LLE, RLE Sensory: Normal Course - Re-evaluation Re-evalutation: 04/19/20 14:26 Patient is resting comfortably with decreased pain. Afebrile, nontoxic- appearing, stable vital signs. Reviewed all test results with patient. Case was staffed with ed MD Dr. Guzman who personally saw and evaluated the patient. Counseled patient that I have spoke with the on-call market research lead Dr. Grace will follow up patient next week in the office. Recommends change of antibiotics from clindamycin to Augmentin. Patient was given strict return to the emergency room guidelines. Return for any new or worsening symptoms. All questions were answered. Patient verbalized understanding and agrees with plan of care. - Vital Signs Vital signs: Temp Pulse Resp BP Pulse Ox 98.9 F 78 16 102/60 96 04/19/20 14:58 04/19/20 14:58 04/19/20 14:58 04/19/20 14:58 04/19/20 14:58 - Laboratory Result Diagrams: 04/19/20 12:15 04/19/20 12:15 Laboratory results interpreted by me: 04/19/20 04/19/20 12:15 12:15 WBC 11.7 H Absolute Neuts (auto) 8.7 H Sodium 136.2 L - Diagnostic Test Radiology reviewed: Reports reviewed - Consults Dr. Grace Time consulted: 14:20 Reason for consultation: 04/19/20 14:26 Outpatient follow-up choice of antibiotics Consulted provider: follow-up in office Discharge - Discharge Clinical Impression: Lymphadenopathy of left cervical region, Phlegmon Condition: Stable Disposition: HOME, SELF-CARE Instructions: Cellulitis ([facility]), Lymphadenopathy ([facility]) Additional Instructions: Stop the Clindamycin and start Augmentin today. Outpatient follow-up with ENT as discussed. Encourage fluids. Toradol as prescribed. Do not take Motrin, Advil, Aleve, or ibuprofen with the Toradol. Can take Tylenol with the Toradol. Return for any new or worsening symptoms. Prescriptions: Ketorolac Tromethamine [Toradol 10 mg Tablet] 10 mg PO Q6HP PRN #12 tablet PRN Reason: Amoxicillin/Potassium Clav [Augmentin 875-125 Tablet] 1 tab PO Q12 #20 tablet Referrals: ZAC KIRBY FNP [NO LOCAL MD] - Follow up as needed KATTY GRACE MD [ACTIVE STAFF] - Follow up in 3-5 days (Call for an outpatient follow-up appointment.)
[2020-04-19 12:29] LABS: ABSOLUTE BASOPHILS # (AUTO) 0.1 10^3/uL (0.0-0.2); ABSOLUTE EOSINOPHILS # (AUTO) 0.1 10^3/uL (0.0-0.6); ABSOLUTE LYMPHOCYTES (AUTO) 1.9 10^3/uL (0.5-4.7); ABSOLUTE NEUT (AUTO) 8.7 10^3/uL (1.7-8.2); BASOPHILS % (AUTO) 0.8 % (0-2); EOSINOPHILS % (AUTO) 0.8 % (0-6); HEMOGLOBIN 13.2 g/dL (12.0-15.5); LYMPHOCYTES % (AUTO) 15.8 % (13-45); MEAN CORPUSCULAR HEMOGLOBIN 30.7 pg (27.0-33.4); MEAN CORPUSCULAR HGB CONC 33.9 g/dL (32.0-36.0); MEAN CORPUSCULAR VOLUME 91 fl (80-97); MONOCYTES % (AUTO) 8.2 % (3-13); PLATELET COUNT 290 10^3/uL (150-450); RED BLOOD COUNT 4.31 10^6/uL (3.72-5.28); RED CELL DISTRIBUTION WIDTH 12.9 % (11.5-14.0); SEGMENTED NEUTROPHILS % (AUTO) 74.4 % (42-78); TOTAL CELLS COUNTED % (AUTO) 100 %; WHITE BLOOD COUNT 11.7 10^3/uL (4.0-10.5)
[2020-04-19 12:46] LABS: ALBUMIN 4.2 g/dL (3.5-5.0); ALKALINE PHOSPHATASE 57 U/L (38-126); ANION GAP 7 (5-19); ASPARTATE AMINO TRANSFERASE 20 U/L (14-36); BILIRUBIN,TOTAL 0.3 mg/dL (0.2-1.3); BLOOD UREA NITROGEN 8 mg/dL (7-20); CALCIUM 9.3 mg/dL (8.4-10.2); CARBON DIOXIDE 24 mmol/L (22-30); CHLORIDE 105 mmol/L (98-107); GLUCOSE 108 mg/dL (75-110); POTASSIUM 4.4 mmol/L (3.6-5.0); TOTAL PROTEIN 7.1 g/dL (6.3-8.2)
[2020-04-19] MEDS ORDERED: KETOROLAC TROMETHAMINE INJ/PF 30 MG/1 ML SDV IV ONE (12:48)
--- NOTE | 2020-04-19 13:39 | RADIOLOGY REPORT (SQ) ---
EXAM DESCRIPTION: CT SOFT TISSUE NECK WITH IMAGES COMPLETED DATE/TIME: 04/19/2020 11:41 am REASON FOR STUDY: large inflamed knot with erythema left neck COMPARISON: None. TECHNIQUE: Post IV contrasted scanning from skull base through lung apices with review of bone, soft tissue and lung windows. Reconstructed coronal and sagittal MPR images reviewed. All images stored on PACS. All CT scanners at this facility use dose modulation, iterative reconstruction, and/or weight based d osing when appropriate to reduce radiation dose to as low as reasonably achievable (ALARA). [facility]: Dose Right [facility]: CareDose [facility]: Dose Right [facility]: Teradose 4D [facility]: [employer] CONTRAST TYPE AND DOSE: 74 mL Omnipaque 350- low osmolar. RENAL FUNCTION: None required. The patient is less than 50 years old. RADIATION DOSE: CT Rad equipment meets quality standard of care and radiation dose reduction techniq ues were employed. CTDIvol: 12.7 mGy. DLP: 320 mGy-cm. . LIMITATIONS: None. FINDINGS: SKULL BASE: Intact. MAJOR SALIVARY GLANDS: No solid or cystic masses. No inflammatory changes. LYMPHADENOPATHY: There are enlarged cervical lymph nodes on the left, the largest at the carotid spac e measuring 1.1 x 1.2 cm. No right cervical or supraclavicular adenopathy. MUCOSAL MASSES OR ASYMMETRY: No mucosal masses or asymmetry. LARYNX/CORDS: No abnormal findings. VASCULAR STRUCTURES: The major vessels are patent. LUNG APICES: Clear. BONES: Intact. THYROID: Normal size. No masses. PARANASAL SINUSES: Clear. OTHER: There is a 1.5 x 1.4 x 2 cm irregular subcutaneous soft tissue density mass in the left latera l subcutaneous fat and abutting these sternocleidomastoid muscle, consistent with a small phlegmon. No focal drainable abscess. Overlying skin thickening and mild edema in the adjacent subcutaneous fa t. IMPRESSION: 1. Subcutaneous phlegmon in the left lateral soft tissues of the neck measuring maximum 1.5 cm. No f ocal drainable abscess. Associated skin thickening. 2. Reactive left cervical lymphadenopathy. TECHNICAL DOCUMENTATION: JOB ID: [id number] Quality ID # [id number]: Final reports with documentation of one or more dose reduction techniques (e.g., Au tomated exposure control, adjustment of the mA and/or kV according to patient size, use of iterative reconstruction technique) 2010 [employer]- All Rights Reserved Reading location - IP/workstation name: [email or web address]
--- NOTE | 2020-04-19 14:19 | ER Document Report ---
Doctor's Note Notes: 04/19/20 14:17 35-year-old female presents today with some pain to the left lateral anterior neck 1 week ago. No trauma. No fevers vomiting. Temperature max 99. No difficulty or pain with swallowing. Patient did have an endoscopy around 10 days ago secondary to gastric reflux. Patient saw an urgent care and was told that she needed further evaluation. On examination patient is sitting up with full range of motion of the neck. Some tenderness and a small area of swelling to the left anterior neck wall with no obvious fluctuance or induration. No surrounding erythema. TMs clear bilaterally with no mastoid tenderness or swelling. No other neck or supraclavicular lymphadenopathy noted. No posterior pharyngeal lesions present. Given the above history and physical imaging and labs were performed. We will have ENT paged to help expedite follow-up and most likely change the patient's antibiotic from clindamycin to Augmentin. Strict return precautions have been explained.
[2020-04-19 14:58] VITALS: BP 102/60
== END 2020-04-19 14:58 | disposition home or self-care (01) ==
LOC: ER 11:16
DX: L04.0 Acute lymphadenitis of face, head and neck (principal); M54.2 Cervicalgia; Z98.890 Other specified postprocedural states; R50.9 Fever, unspecified; Z88.1 Allergy status to other antibiotic agents; Z88.2 Allergy status to sulfonamides; F17.200 Nicotine dependence, unspecified, uncomplicated
CPT/HCPCS: 99284; 96361; 96374; 36415; 87040; 84703; 85025; 80053; 81001; 70491; J1885; J7120

== ENCOUNTER 2020-10-20 15:51 | Emergency (ER) | payer OTHER, MEDICAID ==
[2020-10-20] MEDS ORDERED: ACETAMINOPHEN 325 MG TABLET PO ONE (16:58)
[2020-10-20] MEDS ORDERED: IBUPROFEN 600 MG TABLET PO ONE (16:58)
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
[2020-10-20 18:50] VITALS: BP 118/83
== END 2020-10-20 18:44 | disposition home or self-care (01) ==
LOC: ER 15:51
DX: M54.2 Cervicalgia (principal); M54.9 Dorsalgia, unspecified; F17.200 Nicotine dependence, unspecified, uncomplicated; V43.52XA Car driver injured in collision with other type car in traffic accident, initial encounter
CPT/HCPCS: 72125; 99284